=== PATIENT | male | born 1955 | race Caucasian/White ===

== ENCOUNTER → 2019-08-03 09:50 | Outpatient (BNVA) | payer BC, SELFPAY | PROVIDERS: Family Provider Family Medicine; PCP Family Medicine; Visit Provider Family Medicine | DX: E78.00 Pure hypercholesterolemia, unspecified (principal); I10 Essential (primary) hypertension; N40.0 Benign prostatic hyperplasia without lower urinary tract symptoms | CPT/HCPCS: 80053; 80061; 85025; G0103 ==

== ENCOUNTER 2019-12-09 12:54 | Outpatient (CLI) | payer MEDICARE, BC, SELFPAY ==
--- NOTE | 2019-12-09 13:01 | MR_ITS ---
WS: [id number] MRI LUMBAR SPINE NONCONTRAST HISTORY: INTERVERTEBRAL DISC DISORDER WITH RADICULOPATHY COMPARISON: None available. TECHNIQUE: Sagittal and axial multisequence imaging is submitted. Normal lumbar alignment. Very mild disc desiccation throughout the lumbar spine. No marrow edema or f racture. Conus terminates normally at L1. L1-L2: Normal. L2-L3: Very mild annular disc bulging. Slight flattening of the ventral thecal sac. Mild ligamentum f lavum hypertrophy and facet arthropathy. There is mild central and RIGHT foraminal stenosis. Mild enc roachment upon the subarticular recesses by the disc bulging. L3-L4: Mild annular disc bulging with mild facet and ligamentum flavum arthritis. Mild encroachment a nd narrowing of the subarticular recesses. L4-L5: Mild annular disc bulging with moderate facet and ligamentum flavum arthritis. Mild encroachme nt into the subarticular recesses. Mild bilateral foraminal subarticular recess narrowing. L5-S1: Asymmetric disc bulging. Broad-based large RIGHT foraminal disc protrusion with annular fissur es. Disc protrusion is causing near complete effacement of fat in the RIGHT foramen with significant encroachment upon the RIGHT L5 nerve root and to a lesser extent the S1 nerve root. Severe RIGHT fora gonzales stenosis and mild on the LEFT. Paraspinal soft tissues are normal. MR/MR lumbar spine wo con* [id number] IMPRESSION: 1. Large disc protrusion extending into the RIGHT L5-S1 foramen with obliterat ion of the fat and contact on the L5 and S1 nerve roots. 2. Mild bilateral facet joint arthritis and foraminal narrowing from L2-3 thro ugh L4-5. Component of short pedicles may be present as the thecal sac is sligh tly narrowed throughout.
== END 2019-12-09 12:55 | disposition home or self-care (01) ==
LOC: RADWPI 12:59
PROVIDERS: Family Provider Family Medicine; PCP Family Medicine; Visit Provider Family Medicine
DX: M51.16 Intervertebral disc disorders with radiculopathy, lumbar region (principal); M51.27 Other intervertebral disc displacement, lumbosacral region; M13.88 Other specified arthritis, other site
CPT/HCPCS: 72148

== ENCOUNTER → 2020-07-25 12:00 | Outpatient (BNVA) | payer MEDICARE, BC, SELFPAY | PROVIDERS: Family Provider Family Medicine; PCP Family Medicine; Visit Provider Family Medicine | DX: S89.90XA Unspecified injury of unspecified lower leg, initial encounter (principal); E78.00 Pure hypercholesterolemia, unspecified; I10 Essential (primary) hypertension; N40.0 Benign prostatic hyperplasia without lower urinary tract symptoms; S80.912A Unspecified superficial injury of left knee, initial encounter; X58.XXXA Exposure to other specified factors, initial encounter; M17.12 Unilateral primary osteoarthritis, left knee; M51.16 Intervertebral disc disorders with radiculopathy, lumbar region; Z68.35 Body mass index [BMI] 35.0-35.9, adult; F17.211 Nicotine dependence, cigarettes, in remission | CPT/HCPCS: 73562; 80053; 85025; G0103 ==

== ENCOUNTER → 2021-07-26 12:01 | Outpatient (BNVA) | payer MEDICARE, BC, SELFPAY | PROVIDERS: Family Provider Family Medicine; PCP Family Medicine; Visit Provider Family Medicine | DX: Z00.00 Encounter for general adult medical examination without abnormal findings (principal); N40.0 Benign prostatic hyperplasia without lower urinary tract symptoms; E78.00 Pure hypercholesterolemia, unspecified; I10 Essential (primary) hypertension; M17.12 Unilateral primary osteoarthritis, left knee | CPT/HCPCS: 80053; 84153; 85025 ==

== ENCOUNTER → 2021-09-13 13:11 | Outpatient (BNVA) | payer MEDICARE, BC, SELFPAY | PROVIDERS: Family Provider Family Medicine; PCP Family Medicine; Referring Provider Family Medicine; Visit Provider Orthopaedic Surgery | DX: M17.12 Unilateral primary osteoarthritis, left knee (principal); Z87.891 Personal history of nicotine dependence | CPT/HCPCS: 99203 ==

== ENCOUNTER 2021-10-16 17:21 | Observation (INO) | payer MEDICARE, BC, SELFPAY ==
--- NOTE | 2021-10-13 11:35 | ECG_ITS ---
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 Measurements Intervals [place] Rate: 75 P: 11 WI: 163 QRS: 42 QRSD: 93 T: 46 QT: 354 QTc: 398 Interpretive Statements SINUS RHYTHM LOW QRS VOLTAGE IN PRECORDIAL LEADS [QRS DEFLECTION < 1.0 mV IN CHEST LEADS] No previous ECG available for comparison Electronically Signed On 10-13-2021 22:38:15 CDT by Efrem Dean M.D. [id number]
[2021-10-13 11:46] VITALS: BMI 34.0
[2021-10-13 12:40] LABS: Blood Urea Nitrogen 15 mg/dL (8-23); Calcium 9.7 mg/dL (8.5-10.5); Carbon Dioxide 25 mmol/L (22-29); Chloride 100 mmol/L (98-107); Glomerular Filtration Rate 84.4 mL/min (90-130); Glucose 96 mg/dL (65-115); Osmolality Calculated 285 mOsm/kg (285-295); Sodium 137 mmol/L (136-145)
--- NOTE | 2021-10-13 16:12 | ANES.PREANE2 ---
Pre-Anesthetic Assessment Height/Weight: Height 1.88 m Weight 120.202 kg Preop Diagnosis: end stage OA Operation Date: 10/16/21 12:15 Proposed Procedures p total knee arthroplasty of the left knee [id number](Left) - Kevin Carnes MD Familial anesthetic complications: none Was Beta Mila taken within 24 hours: N/A Was Clonidine taken within 24 hours: N/A Social No alcohol and No tobacco Exam alert, oriented x 3, clear to auscultation bilaterally and regular rate & rhythm Airway Submandibular: within normal limits Cervical ROM: within normal limits and Other (Reduced cervical ROM s/p cervical spine surgery ) Mallampati: Class III Dentition: chipped Pulmonary None reported CV/HEM Hypertension None reported BPH Hepatic None reported GI Gastroesophageal Reflux Disease Metabolic None reported Musc/skel Lower Back Pain and Osteoarthritis/DJD Hx of lumbar surgery Neuropsych None reported Anesthetic Plan ASA status: 2 Anesthesia: Anesthesia Evaluation, General and Regional (specify below) (spinal with adductor canal block for post op pain control ) Other: We discussed risk and benefits of general vs spinal anesthesia including DVT risk, infection, paralysis/catastrophic nerve injury, back bruising/pain, PDPH, conversion to general in case of spinal, PONV, sore throat (sometimes severe), corneal abrasion, positioning and peripheral nerve injuries, life threatening allergic reaction, post operative ICU admission requiring prolonged intubation, stroke, heart attack, , post operative delirium and/or post operative cognitive decline, and rare incidences of recall (under general anesthesia). We discussed risk and benefits of nerve block for post op pain control including management of pain and titration of pain medications as signs/symptoms of nerve block wearing off begin to appear and/or prior bed. We discussed risk of failed nerve block, vascular injury or other vital structure injury, abscess/infection, LAST, and nerve injury. Patient consents to spinal with adductor canal block for post op pain control. Risk of > 500 ml blood loss (7ml/kg in children): No Medications/Allergies Home Medications Medication Instructions Recorded Confirmed Last Taken Type tamsulosin 0.4 mg capsule 0.4 mg PO DAILY #90 cap 10/03/20 10/13/21 Unknown Rx lisinopril 20 1 tab PO DAILY #90 tab 04/28/21 10/13/21 Unknown Rx mg-hydrochlorothiazide 25 mg tablet atorvastatin 10 mg tablet 10 mg PO DAILY 90 Days #90 tab 06/19/21 10/13/21 Unknown Rx diclofenac sodium 75 mg 75 mg PO BID 90 Days #180 tab 08/07/21 10/13/21 Unknown Rx tablet,delayed release Osteo Bi-Flex PO DAILY 10/13/21 Unknown History aspirin 81 mg tablet,delayed 81 mg PO DAILY 10/13/21 10/13/21 Unknown History release orohonxfshbe-ggbnkvta-beyhab tablet tab 10/13/21 Unknown History omeprazole 20 mg capsule,delayed 20 mg 10/13/21 Unknown History release Allergies Allergy/AdvReac Type Severity Reaction Status Date / Time No Known Allergies Allergy Verified 09/13/21 13:16 [facility] Anesthesia Medical History Hypercholesteremia Hypertension Prostatic hyperplasia Social History Smoking and tobacco status: former smoker Alcohol intake: former Data Anesthesia : 10/13/21 12:03 BMP 10/13/21 12:03 Sodium 137 Potassium 4.0 Chloride 100 Carbon Dioxide 25 BUN 15 Creatinine 0.9 Glucose 96 Calcium 9.7 Cardiac Studies: No Data to Display
[2021-10-16] VITALS (15 sets, daily range): BP systolic 141–169; BP diastolic 70–109; PULSE 77–99; RESP 16–18; TEMP 36.4–36.7; O2SAT 93–99
[2021-10-16] MEDS: sodium chloride 0.9% 1,000 ML 30 ML IV (10:30)
[2021-10-16] MEDS: CELEcoxib 200 mg Capsule 400 MG PO (10:30)
[2021-10-16] MEDS: oxyCODONE 20 mg ER (12 HR) Tablet PO (10:30)
[2021-10-16] MEDS: acetaminophen 500 mg Tablet 1000 MG PO ×2 (10:31→18:19)
[2021-10-16] MEDS: gabapentin 300 mg Capsule PO ×2 (10:31→18:18)
[2021-10-16 10:44] LABS: Anion Gap 14.5 (5-19); Blood Urea Nitrogen 20 mg/dL (8-23); Calcium 9.3 mg/dL (8.5-10.5); Carbon Dioxide 25 mmol/L (22-29); Chloride 102 mmol/L (98-107); Glomerular Filtration Rate 84.4 mL/min (90-130); Glucose 110 mg/dL (65-115); Osmolality Calculated 287 mOsm/kg (285-295); Potassium 4.5 mmol/L (3.5-5.1); Sodium 137 mmol/L (136-145)
--- NOTE | 2021-10-16 14:05 | ANES.PROC ---
Anesthesia Procedures Procedure/Date: 10/16/21 Nerve Block ^: Nerve Block 1: Main Anesthesia: spinal anesthesia block Time Out Performed: Yes Consent: requested by attending/covering physician, from patient, risks and benefits reviewed and patient agrees to proceed Nerve block location: adductor canal (L) Anesthesia monitors applied: pulse oximetry, EKG, BP cuff and oxygen Nerve block position: supine Anesthetic Used: ropivicaine 0.5% (30) and with decadron (4 mg) Ultrasound used to: recognize landmarks and visualize and ID femerol nerve Nerve Stimulator Used?: Yes Interscalene/Femoral BLK: 4 stimuplex 21 g needle used for position and inplane approach and visualize local anesthetic spread Injection: neg aspiration of heme Patient Tolerated Procedure: well and no complications Complications: none
--- NOTE | 2021-10-16 14:24 | P.HP_ITS ---
Same Day Surgery H&P Indication for Procedure/HPI DATE OF PROCEDURE: October 16, 2021 CHIEF COMPLAINT/INDICATIONFOR SURGICAL PROCEDURE: Osteoarthritis left knee here for left total knee arthroplasty PREOP DIAGNOSIS: OsteoarthritisLeft knee PLANNED PROCEDURE: Operation Date: 10/16/21 12:15 Proposed Procedures p total knee arthroplasty of the left knee [id number](Left) - Kevin Carnes MD The patient is a 65-year-old male with progressive left knee pain. He has severe activity related pain. He has been incompletely controlled with anti- inflammatories. He is here for elective left total knee arthroplasty Medications/Allergies* Home Medications Medication Instructions Recorded Confirmed Type Osteo Bi-Flex PO DAILY 10/13/21 History aspirin 81 mg tablet,delayed 81 mg PO DAILY 10/13/21 10/16/21 History release dydnicllwhme-dcricrjs-laqxus tablet tab 10/13/21 History omeprazole 20 mg capsule,delayed 20 mg 10/13/21 History release Allergies/Adverse Reactions Allergy/AdvReac Type Severity Reaction Status Date / Time No Known Allergies Allergy Verified 09/13/21 13:16 Current Medications: Generic Name Dose Route Start Last Admin Trade Name Freq PRN Reason Stop Dose Admin Sodium Chloride 1,000 mls @ 30 mls/hr 10/16/21 10:00 10/16/21 10:30 Sodium Chloride 0.9% IV 10/17/21 09:59 30 mls/hr .Q24H BERKLEY Administration Pertinent History/Comorbid Conditions* Medical History (Updated 07/25/20 @ 14:28 by Taniya Farias MD) Hypercholesteremia Hypertension Prostatic hyperplasia Social History Smoking and tobacco status: former smoker Alcohol intake: former Pertinent Exam Findings alert, oriented x 3, clear to auscultation bilaterally, regular rate & rhythm and operative site marked Recommendations Surgery/Procedure today Coding Level of Care Code Acute Planning Associate for Elvin Ko
[2021-10-16] MEDS: tranexamic acid 1,000 mg/10mL SDV 1000 MG IV (15:10)
[2021-10-16] MEDS: tranexamic acid 1,000 mg/10mL SDV 1000 MG XX (15:36)
[2021-10-16] MEDS: ketorolac 30 mg/mL INJ XX (15:36)
[2021-10-16] MEDS: EPINEPHrine 1 mg/mL INJ XX (15:36)
--- NOTE | 2021-10-16 16:58 | PM.OP ---
Operative Report Date of procedure: October 16, 2021 Pre-op diagnosis: Preop Diagnosis OsteoarthritisLeft knee Post-op diagnosis: same Post-op diagnosis: Same Post-op findings: Same Procedure done: Left total knee arthroplasty Implants: Rylee total knee arthroplasty components were used includin) Size 6 triathalon cruciate retaining femoral component 2) Size 7 Tritanium tibial component 3) 38 mm /11 mm thickness Tritanium asymetric patella 4) Size 7/11 mm thickness CR tibial bearing insert Pathology: none sent Surgeon: Kevin Carnes Anesthesia: Nerve Block (Spinal, adductor canal block) Estimated blood loss (mL): 200 Findings: The patient eburnated bone over his medial femoral condyle and medial tibial plateau patella and trochlea Disposition: PACU Procedure: The patient was taken to the operating room. Patient was given 1 g of tranexamic acid . The above anesthesia provided by the anesthesia service. A timeout was performed. The patient was prepped and draped in the usual fashion with the lower extremity exposed. A anterior incision was made, midline, from a point proximal to the patella to the distal tibial tubercle. The knee was entered through a medial parapatellar approach. The patella could be displaced laterally and the knee flexed. The patellar fat pad was resected to provide better visibility. Retractors were placed medially and laterally adjacent to the tibial plateau. The femoral canal was drilled in line with the longitudinal axis of the femur. Intramedullary femoral guide for used to make a distal femoral cut in 5 degrees of valgus, resecting 8 mm from the more prominent condyle. Next the extra medullary tibial guide was placed in alignment with the longitudinal axis of the tibia. The cutting guides were set to remove just over 9 mm from the high tibial plateau. The proximal tibia was then cut. The femoral measuring guide was then placed over the distal femur. Rotation was verified checking the relationship of the guide to the condyle and the trochlear groove. The femur was measured and cut for the desired femoral component. The desired tibial baseplate was then chosen. A trial reduction with the femur tibial baseplate and polyethylene was done, assuring that the knee was stable throughout full motion. Ligament balancing involved nothing more than a release of the deep medial collateral ligament and removal of medial ostial.The tibia was prepared for the tibial baseplate. Patellar thickness was then measured. The patella was cut removing articular cartilage and prepared for appropriate size patellar button. surfaces were cleaned with a gentamicin solution. The femur tibia and patella were then press into place. The posterior capsule and collateral ligaments were then injected with a solution of 100 mL of 0.2% ropivacaine, 1 mL of a 1:1000 epinephrine solution, 30 mg of Toradol, and 1 g of tranexamic acid. Final polyethylene component was then snapped into place into the tibia. The extensor retinaculum was closed with a running 1 Stratafix interrupted 1 Ethibond. The subcutaneous tissues were closed with 2-0 Vicryl and the skin was closed with a running 4-0 Stratafix. The wound was covered with a Dermabond Prineo dressing. It was covered with 4xrs and a compressive Tubigauze was applied. The patient was taken to recovery room in stable condition.
--- NOTE | 2021-10-16 17:02 | XRR_ITS ---
PROCEDURE INFORMATION: Exam: XR Left Knee Exam date and time: 10/16/2021 5:15 PM Age: 65 years old Clinical indication: Device placement; Joint replacement hardware; Prior surgery; Surgery date: Post-operative (0-2 days); Surgery type: Left total knee arthroplasty TECHNIQUE: Imaging protocol: XR Left knee. Views: 1 or 2 views. COMPARISON: CR XR knee LT 3V* [id number] 07/25/2020 12:02 PM FINDINGS: Bones/joints: Anatomic alignment of left knee arthroplasty. Soft tissues: Postoperative subcutaneous emphysema and intra-articular air. XR/XR knee LT 1-2V [id number] IMPRESSION: Anatomic alignment of left knee arthroplasty.
[2021-10-16] MEDS: sodium chloride 0.9% 1,000 ML 100 ML IV (18:19)
[2021-10-16] MEDS: oxyCODONE 5 mg IR Tab/Cap PO (21:37)
[2021-10-16] MEDS: CELEcoxib 200 mg Capsule PO (21:37)
[2021-10-17] VITALS (7 sets, daily range): BP systolic 127–174; BP diastolic 75–104; PULSE 86–128; RESP 14–20; TEMP 36.3–36.9; O2SAT 97
[2021-10-17] MEDS: acetaminophen 500 mg Tablet 1000 MG PO ×2 (02:14→09:48)
[2021-10-17] MEDS: oxyCODONE 5 mg IR Tab/Cap PO ×3 (02:19→10:52)
[2021-10-17 04:45] LABS: Hemoglobin 12.1 g/dL (11.7-16.6)
[2021-10-17] MEDS: sodium chloride 0.9% 1,000 ML 100 ML IV (06:06)
[2021-10-17] MEDS: aspirin 81 mg EC Tablet PO (07:18)
[2021-10-17] MEDS: lisinopril 20 mg Tablet PO (07:18)
[2021-10-17] MEDS: hydroCHLOROthiazide 25 mg Tablet PO (07:18)
[2021-10-17] MEDS: gabapentin 300 mg Capsule PO (07:19)
[2021-10-17] MEDS: tamsulosin 0.4 mg Capsule PO (07:20)
--- NOTE | 2021-10-17 07:24 | P.DS_ITS ---
Discharge Providers Date of Admission: 10/16/21 17:21 Date of Discharge: October 17, 2021 Attending Provider at Admission: Kevin Carnes MD Attending Provider at Discharge: Kevin Carnes MD Primary Care Provider: Taniya Farias MD Reason for Visit Reason for Visit: Brief History: The patient left knee pain due to osteoarthritis. He was admitted for elective left total knee arthroplasty Hospital Course Hospital Course The patient tolerated surgery well. They remained hemodynamically stable. They was begun on aspirin and sequential compression dressings for DVT prophylaxis. The patient was mobilized with therapy beginning the day of surgery and by the first postoperative day independent with the walker. As the pain was adequately controlled and they were fully mobile they were discharged home. Physical Exam Narrative: On the day of discharge the knee incision was clean. They had no drainage. There is minimal swelling in the thigh and knee and the calf. No distal neurovascular deficits were noted Urinary Catheter Management: Henriquez: Cath Placed During This Visit: yes Reason for Continuing Indwelling Catheter: Perioperative Use in Selected Surgeries Urinary Catheter Date of Insertion: 10/16/21 Urinary Catheter Time of Insertion: 15:00 Discharge Data Studies Completed and Pending Pending at discharge Category Date Time Status XR knee LT 1-2V [id number] Routine Exams 10/16/21 17:02 Taken Laboratory Results Hgb 12.1 g/dL (11.7-16.6) 10/17/21 04:25 Sodium 137 mmol/L (136-145) 10/16/21 10:18 Potassium 4.5 mmol/L (3.5-5.1) 10/16/21 10:18 Chloride 102 mmol/L (98-107) 10/16/21 10:18 Carbon Dioxide 25 mmol/L (22-29) 10/16/21 10:18 Anion Gap 14.5 (5-19) 10/16/21 10:18 BUN 20 mg/dL (8-23) 10/16/21 10:18 Creatinine 0.9 mg/dL (0.7-1.2) 10/16/21 10:18 GFR Calculation 84.4 mL/min (90-130) L 10/16/21 10:18 Glucose 110 mg/dL (65-115) 10/16/21 10:18 Calculated Osmolality 287 mOsm/kg (285-295) 10/16/21 10:18 Calcium 9.3 mg/dL (8.5-10.5) 10/16/21 10:18 Vitals Last Vital Signs Temp 97.5 F L 10/17/21 04:45 Pulse 87 10/17/21 04:45 Resp 14 10/17/21 04:45 BP 174/102 10/17/21 04:45 Pulse Ox 97 10/17/21 04:45 Discharge Plan Discharge Patient Disposition: Home Condition: Stable Prescriptions: New oxycodone 5 mg Tablet 5 mg PO Q4H PRN (Reason: Moderate Pain) 40 Days 0RF acetaminophen 500 mg Tablet 1,000 mg PO Q8H 14 Days Qty: 84 0RF gabapentin 300 mg Capsule 300 mg PO BID 7 Days Qty: 14 0RF celecoxib 200 mg Capsule 200 mg PO Q12H 14 Days Qty: 28 0RF Continued tamsulosin 0.4 mg capsule 0.4 mg PO DAILY Qty: 90 3RF lisinopril-hydrochlorothiazide 20-25 mg tablet 1 tab PO DAILY Qty: 90 2RF atorvastatin 10 mg tablet 10 mg PO DAILY 90 Days Qty: 90 3RF omeprazole 20 mg Capsule,Delayed Release(Dr/Ec) 20 mg 0RF Rx Instructions: 1/2 oral daily Centrum Silver Tablet 0RF Osteo Bi-Flex PO DAILY 0RF aspirin [Aspir-81] 81 mg Tablet,Delayed Release (Dr/Ec) 81 mg PO DAILY 0RF Discontinued diclofenac sodium 75 mg tablet,delayed release (DR/EC) 75 mg PO BID 90 Days Qty: 180 1RF Discharge Orders: Discharge Order (Routine); Ordered 10/17/21 Ordered By: Kevin Carnes Referrals: Kevin Carnes MD [Physician] - 10/19/21 8:00 am Discharge Diet: Advance as tolerated Discharge Activity: Limit activity as instructed Patient Instructions: Revision Total Joint Arthroplasty (DC), Opioid Safety, Post Operative Pain Activity Restrictions/Additional Instructions: discharge physical exam toOkay to shower Keep Tubigauze sleeve in place for swelling. Okay to remove for hygiene. Apply FirstIce up to 20 min/hr for pain and swelling Take Celebrex twice a day for the next 15 days for pain , discontinue other anti-inflammatories Take Neurontin twice a day for 7 days. Take Tylenol 500mg (2 tabs) as needed 3 times a day for mild pain take oxycodone for breakthrough pain. Exercises per physical therapy. May weight-bear as tolerated on total knee arthroplasty IF HAVE ANY PROBLEMS OR QUESTIONS CALL [facility] AT AND ASK TO HAVE DR. RANDI BABCOCK. Discharge Attestations Time Spent in Discharge Care*: other Quality Metrics Clinical Quality Measures [ No reported AMI, CVA or VTE this stay] Coding Level of Care Code Acute Chg FW DC note
[2021-10-17] MEDS: CELEcoxib 200 mg Capsule PO (09:48)
== END 2021-10-17 12:45 | disposition home health service (06) ==
LOC: OBGYN 17:22
PROVIDERS: Anesthesiology; Admitting Provider Orthopaedic Surgery; PCP Family Medicine; Visit Provider Orthopaedic Surgery
PROC: (CPT 27447; principal; 2021-10-16 11:55)
DX: M17.12 Unilateral primary osteoarthritis, left knee (principal); Z79.82 Long term (current) use of aspirin; I10 Essential (primary) hypertension; E78.00 Pure hypercholesterolemia, unspecified; Z87.891 Personal history of nicotine dependence; N40.0 Benign prostatic hyperplasia without lower urinary tract symptoms; K21.9 Gastro-esophageal reflux disease without esophagitis
CPT/HCPCS: 27447; 36415; 51702; 64447; 73560; 76942; 80048; 85018; 93005; 97110; 97116; 97161; 97165; C1776; G0378; J0171; J1100; J1580; J1885; J2250; J2704; J2795; J3010; J7030

== ENCOUNTER 2021-11-14 06:00 | Outpatient (RCR) | payer MEDICARE, BC, SELFPAY | END 2021-12-10 23:59 | disposition home or self-care (01) | LOC: MPT 06:00 | PROVIDERS: PCP Family Medicine; Referring Provider Orthopaedic Surgery; Visit Provider Orthopaedic Surgery | DX: M17.12 Unilateral primary osteoarthritis, left knee (principal) | CPT/HCPCS: 97110; 97116; 97140; 97161 ==

== ENCOUNTER → 2021-11-15 10:57 | Outpatient (BNVA) | payer MEDICARE, BC, SELFPAY | PROVIDERS: PCP Family Medicine; Visit Provider Orthopaedic Surgery | DX: Z96.652 Presence of left artificial knee joint (principal) | CPT/HCPCS: 73560; 73565; 99024 ==

== ENCOUNTER 2021-12-11 06:00 | Outpatient (RCR) | payer MEDICARE, BC, SELFPAY | END 2022-01-10 23:59 | disposition home or self-care (01) | LOC: MPT 06:00 | PROVIDERS: PCP Family Medicine; Visit Provider Orthopaedic Surgery | DX: Z96.652 Presence of left artificial knee joint (principal) | CPT/HCPCS: 97110; 97112; G0283 ==

== ENCOUNTER → 2021-12-13 10:28 | Outpatient (BNVA) | payer MEDICARE, BC, SELFPAY | PROVIDERS: PCP Family Medicine; Visit Provider Orthopaedic Surgery | DX: Z96.652 Presence of left artificial knee joint (principal) | CPT/HCPCS: 99024 ==

== ENCOUNTER 2022-01-11 06:00 | Outpatient (RCR) | payer MEDICARE, BC, SELFPAY | END 2022-01-17 23:59 | disposition home or self-care (01) | LOC: MPT 06:00 | PROVIDERS: PCP Family Medicine; Visit Provider Orthopaedic Surgery | DX: Z96.652 Presence of left artificial knee joint (principal) | CPT/HCPCS: 97110; 97116; G0283 ==

== ENCOUNTER → 2022-07-17 11:03 | Outpatient (BNVA) | payer MEDICARE, BC, SELFPAY | PROVIDERS: PCP Family Medicine; Visit Provider Family Medicine | DX: Z00.00 Encounter for general adult medical examination without abnormal findings (principal); N40.1 Benign prostatic hyperplasia with lower urinary tract symptoms; N39.43 Post-void dribbling; I10 Essential (primary) hypertension; E78.00 Pure hypercholesterolemia, unspecified; R97.20 Elevated prostate specific antigen [PSA]; K52.9 Noninfective gastroenteritis and colitis, unspecified | CPT/HCPCS: 80053; 80061; 85025; G0103 ==

== ENCOUNTER → 2023-10-02 12:16 | Outpatient (BNVA) | payer MEDICARE, BC, SELFPAY | PROVIDERS: PCP Family Medicine; Visit Provider Family Medicine | DX: R68.89 Other general symptoms and signs (principal); I10 Essential (primary) hypertension; E78.00 Pure hypercholesterolemia, unspecified; N40.0 Benign prostatic hyperplasia without lower urinary tract symptoms; N40.1 Benign prostatic hyperplasia with lower urinary tract symptoms; N39.43 Post-void dribbling; Z00.00 Encounter for general adult medical examination without abnormal findings; R97.20 Elevated prostate specific antigen [PSA] | CPT/HCPCS: 80053; 80061; 84153; 85025 ==

== ENCOUNTER 2023-10-31 10:30 | Outpatient (CLI) | payer MEDICARE, BC, SELFPAY ==
--- NOTE | 2023-10-31 10:30 | CTR_ITS ---
PROCEDURE INFORMATION: Exam: CT Cervical Spine Without Contrast Exam date and time: 10/31/2023 10:17 AM Age: 67 years old Clinical indication: Neck pain; Prior surgery; Surgery date: 6+ months; Patient HX: Left arm/hand tingling and numbness x 3 years; Additional info: Progressive tingling and weakness both hands recent weeks TECHNIQUE: Imaging protocol: Computed tomography of the cervical spine without contrast. Radiation optimization: All CT scans at this facility use at least one of these dose optimization techniques: automated exposure control; mA and/or kV adjustment per patient size (includes targeted exams where dose is matched to clinical indication); or iterative reconstruction. COMPARISON: CT cervical spin wo con* [id number] 08/21/2018 12:59 PM RADIATION DOSE METRICS: Total DLP (mGy-cm): 372.87 FINDINGS: Bones: Intact ACDF hardware at the C5-C7 segment with intervertebral disc spacers. No acute fracture. Normal alignment. Moderate to severe central canal stenosis posterior to C3-C4. Moderate bilateral neural foraminal stenosis of the mid and lower cervical spine. Lungs: Lung apices are normal. Soft tissues: Unremarkable. CT/CT cervical spin wo con* [id number] IMPRESSION: Moderate to severe central canal stenosis posterior to C3-C4. Moderate bilateral neural foraminal stenosis of the mid and lower cervical spine.
== END 2023-10-31 10:31 | disposition home or self-care (01) ==
PROVIDERS: PCP Family Medicine; Visit Provider Family Medicine
DX: M48.02 Spinal stenosis, cervical region (principal); M50.123 Cervical disc disorder at C6-C7 level with radiculopathy; Z98.1 Arthrodesis status
CPT/HCPCS: 72125

== ENCOUNTER → 2023-11-18 15:50 | Outpatient (BNVA) | payer MEDICARE, BC, SELFPAY | PROVIDERS: PCP Family Medicine; Visit Provider Family Medicine | DX: M48.02 Spinal stenosis, cervical region (principal); M50.123 Cervical disc disorder at C6-C7 level with radiculopathy; Z98.1 Arthrodesis status; I10 Essential (primary) hypertension; Z79.899 Other long term (current) drug therapy | CPT/HCPCS: 80053; 85025 ==

== ENCOUNTER → 2023-11-21 14:14 | Outpatient (BNVA) | payer MEDICARE, BC, SELFPAY | PROVIDERS: PCP Family Medicine; Visit Provider Orthopaedic Surgery | DX: M50.123 Cervical disc disorder at C6-C7 level with radiculopathy (principal); M48.02 Spinal stenosis, cervical region | CPT/HCPCS: 72050; 99204 ==

== ENCOUNTER → 2023-12-17 10:38 | Outpatient (BNVA) | payer MEDICARE, BC, SELFPAY | PROVIDERS: PCP Family Medicine; Visit Provider Family Medicine | DX: M62.81 Muscle weakness (generalized) (principal); W57.XXXA Bitten or stung by nonvenomous insect and other nonvenomous arthropods, initial encounter; M48.02 Spinal stenosis, cervical region; Z98.1 Arthrodesis status | CPT/HCPCS: 80053; 82550; 85651; 86140; 86618; 86666; 86757 ==

== ENCOUNTER 2023-12-30 15:54 | Outpatient (CLI) | payer MEDICARE, BC, SELFPAY ==
--- NOTE | 2023-12-30 16:00 | MR_ITS ---
WS: [id number] MRI CERVICAL SPINE NONCONTRAST TECHNIQUE: Sagittal T1, T2 and STIR imaging. Axial T2, gradient, and fiesta imaging. CLINICAL INFORMATION: neck pain COMPARISON: CT 10/31/2023 and MRI 2017 FINDINGS: Straightening of the normal cervical lordosis. Prior postoperative changes ACDF C5-C7. Postoperative changes are new since the prior MRI. C2-C3: Mild disc bulging. Mild facet arthropathy. C3-C4: Central disc osteophyte protrusion with indentation and flattening of the cervical cord. Sever e central canal stenosis. Central canal measures 4.8 mm at this level. Trace myelomalacia in the cerv ical cord at this level. Recommend spine surgery consultation. Severe LEFT and moderate RIGHT bony fo raminal narrowing. Moderate facet arthropathy. C4-C5: Shallow central protrusion. Tiny annular fissure. Slight indentation on the cervical cord. Mil d central canal stenosis. Moderate facet arthropathy. Moderate LEFT greater than RIGHT bony foraminal narrowing. C5-C6: Postoperative changes ACDF. Spinal canal is patent. Mild bilateral bony foraminal narrowing. M ild facet arthropathy. C6-C7: Postoperative changes. Moderate LEFT and no significant RIGHT foraminal narrowing. Spinal kameron l is patent. C7-T1: Mild disc bulging with slight effacement of the ventral thecal sac. Moderate LEFT and no signi ficant RIGHT foraminal narrowing. Spinal canal is patent. Mild facet arthropathy. Visualized brain stem structures: Normal. Prevertebral soft tissues: Normal. MR/MR cervical spin wo con* [id number] IMPRESSION: 1. Severe central canal stenosis C3-C4 with central disc osteophyte protrusion . Indentation and flattening of the cervical cord with a small amount of myelom alacia. Central canal measures 4.8 mm at this level. Recommend spine surgery co nsultation. 2. Mild central canal stenosis C4-5 with slight indentation of the cervical co rd. 3. Postoperative changes ACDF C5-C7. 4. Moderate to severe bony foraminal narrowing worse LEFT C3-C4, LEFT C4-5, LE FT C6-7 and LEFT C7-T1.
== END 2023-12-30 15:55 | disposition home or self-care (01) ==
LOC: RAD 15:55
PROVIDERS: PCP Family Medicine; Visit Provider Orthopaedic Surgery
DX: M48.02 Spinal stenosis, cervical region (principal); Z98.1 Arthrodesis status
CPT/HCPCS: 72141

== ENCOUNTER → 2024-01-02 12:44 | Outpatient (BNVA) | payer MEDICARE, BC, SELFPAY | PROVIDERS: PCP Family Medicine; Visit Provider Orthopaedic Surgery | DX: Z01.818 Encounter for other preprocedural examination (principal); M54.2 Cervicalgia; M47.12 Other spondylosis with myelopathy, cervical region | CPT/HCPCS: 36415; 80053; 81003; 81015; 85025; 99214 ==

== ENCOUNTER → 2024-01-15 09:10 | Outpatient (BNVA) | payer MEDICARE, BC, SELFPAY | PROVIDERS: PCP Family Medicine; Visit Provider Family Medicine | DX: Z01.818 Encounter for other preprocedural examination (principal); I49.8 Other specified cardiac arrhythmias; I49.49 Other premature depolarization | CPT/HCPCS: 93005 ==

== ENCOUNTER 2024-01-22 09:30 | Observation (INO) | payer MEDICARE, BC, SELFPAY ==
[2024-01-22] VITALS (23 sets, daily range): BP systolic 117–185; BP diastolic 68–107; PULSE 8–116; RESP 16–20; TEMP 36.1–37.1; O2SAT 91–97; BMI 30.8
--- NOTE | 2024-01-22 06:15 | W.PM.OPSUD ---
Surgery/Procedure H&P Update DATE OF PROCEDURE: January 22, 2024 DATE H&P PERFORMED: 01/15/24 H&P UPDATE INFORMATION: I have reviewed H&P completed within last 30 days, I have examined patient prior to procedure and No changes to prior documentation PREOP DIAGNOSIS: Cervical radiculopathy PLANNED PROCEDURE: Operation Date: 01/22/24 07:00 Proposed Procedures p Anterior Cervical Discectomy & Fusion ACDF w/ Anterior Interbody Fusion w/ Cage w/ Instrumentation w/ Allograft w/ Navigation(Not Applicable) - Cecil Torres DO
[2024-01-22] MEDS: sodium chloride 0.9% 1,000 ML 30 ML IV (06:23)
--- NOTE | 2024-01-22 06:41 | ANES.PREANE2 ---
Pre-Anesthetic Assessment Height/Weight: Height 1.88 m Weight 108.862 kg Temp Pulse Resp BP Pulse Ox O2 Del Method 97.7 F 98 16 149/103 97 Room Air 01/22/24 06:10 01/22/24 06:10 01/22/24 06:10 01/22/24 06:10 01/22/24 06:10 01/22/24 06:10 Preop Diagnosis: Cervical radiculopathy Operation Date: 01/22/24 07:00 Proposed Procedures p Anterior Cervical Discectomy & Fusion ACDF w/ Anterior Interbody Fusion w/ Cage w/ Instrumentation w/ Allograft w/ Navigation(Not Applicable) - Cecil Torres, DO Familial anesthetic complications: None Was Beta Mila taken within 24 hours: N/A Was Clonidine taken within 24 hours: N/A Last intake: Intake Last Liquid Date 01/21/24 Last Liquid Time 21:00 Last Solid Date 01/21/24 Last Solid Time 17:00 Social No alcohol and No tobacco Exam alert, oriented x 3, clear to auscultation bilaterally and regular rate & rhythm Airway Mallampati: Class IV Dentition: false and other (missing) Comments: Comments: cervical fusion CV/HEM Hypertension GI Gastroesophageal Reflux Disease Metabolic Hyperlipidemia Anesthetic Plan ASA status: 2 Anesthesia: General Risk of > 500 ml blood loss (7ml/kg in children): No Medications/Allergies Home Medications Medication Instructions Recorded Confirmed Last Taken Type Osteo Bi-Flex 1 cap PO DAILY 10/13/21 01/22/24 10/16/21 History aspirin 81 mg tablet,delayed 81 mg PO DAILY 10/13/21 01/22/24 01/14/24 History release kxpfjfcrnnma-mdfunifj-uksryt tablet 1 tab PO DAILY 10/13/21 01/22/24 10/16/21 History omeprazole 20 mg capsule,delayed 20 mg PO DAILY 10/13/21 01/22/24 01/21/24 History release diclofenac sodium 75 mg See Rx Instructions .Route 05/24/23 01/22/24 01/14/24 Rx tablet,delayed release .COMPLEX #180 tabs Bone Growth Stimulator #1 ea 01/15/24 01/22/24 Unknown Rx atorvastatin 10 mg tablet 10 mg PO DAILY 01/21/24 01/22/24 01/21/24 History tamsulosin 0.4 mg capsule 0.4 mg PO DAILY 01/21/24 01/22/24 01/21/24 History Allergies Allergy/AdvReac Type Severity Reaction Status Date / Time No Known Allergies Allergy Verified 01/21/24 11:47 Current Medications Generic Name Dose Route Start Last Admin Trade Name Freq PRN Reason Stop Dose Admin Sodium Chloride 1,000 mls @ 30 mls/hr 01/22/24 06:00 01/22/24 06:23 Sodium Chloride 0.9% IV 01/23/24 05:59 30 mls/hr .Q24H BERKLEY Administration PFSH Anesthesia Medical History Spinal stenosis, cervical region Prostatic hyperplasia Hypertension Hypercholesteremia Social History Smoking and tobacco/nicotine status: never used tobacco/nicotine Alcohol intake: former Substance/Drug Use: never Data Anesthesia Cardiac Studies: No Data to Display
[2024-01-22] MEDS: ceFAZolin 2,000 mg SDV 2000 MG IVP ×3 (07:00→22:53)
[2024-01-22] MEDS: lidocaine-epi 1% 20 mL INJ INJECTION (07:52)
--- NOTE | 2024-01-22 09:39 | PM.OP ---
Operative Report Date of procedure: January 22, 2024 Pre-op diagnosis: Cervical radiculopathy and myelopathy Post-op diagnosis: same Procedure done: 1. Anterior diskectomy C3/4 2. Anterior discectomy C4/5 3. Insertion of cage C3/4 4. Insertion of Cage C4/5 5. Instrumentation with anterior plate from C3-C5 6. Use of allograft Surgeon: Cecil Torres DO Estimated blood loss (mL): 50 Procedure: 1. Anterior diskectomy C3/4 2. Anterior discectomy C4/5 3. Insertion of cage C3/4 4. Insertion of Cage C4/5 5. Instrumentation with anterior plate from C3-C5 6. Use of allograft The patient was taken to the operating room, where he underwent general endotracheal anesthesia without complications. He was then positioned supine on the operating table, and all areas of impingement were well padded. The arms were carefully padded and tucked at his sides. A roll was placed between the shoulder blades.. An x-ray was done to determine the appropriate level for the skin incision. The entire neck was then sterilely prepped and draped in the usual fashion. Neuromonitoring was attached prior to prepping. A transverse skin incision was made and carried down to the platysma muscle. This was then split in line with its fibers. Blunt dissection was carried down medial to the carotid sheath and lateral to the trachea and esophagus until the anterior cervical spine was visualized. A needle was placed into a disc and an x-ray was done to determine its location. The longus colli muscles were then elevated bilaterally with the electrocautery unit. Self-retaining retractors were placed deep to the longus colli muscle. Attention was brought to the C3/4 level that was confirmed on x-ray. A caspar pin was placed into the C3 vertebrae and the C4 vertebrae. The disk space was then distracted. The microscope was then brought in. A radical anterior discectomies were performed at C3/4. This included complete removal of the anterior annulus, nucleus, and posterior annulus. The posterior longitudinal ligament was removed as were the posterior osteophytes. Foraminotomies were then accomplished bilaterally. This was done using a high speed malena, kerrison rongeurs and curretes Once all of this was accomplished, the curved currette was used to check for any residual compression. The central canal was wide open as were the foramen. A high-speed bur was used to remove the cartilaginous endplates above and below the interspace. Bleeding cancellous bone was exposed. The disc space were measured and appropriate size cage were placed sterilely onto the field. Allograft graft was packed into the cages. The cage was then placed and there was good juxtaposition against the bleeding decorticated surfaces and good distraction of each interspace. Attention was brought to the next interspace. The [place] pins were removed. Bone wax was used to prevent any bleeding from occurring at the pin sites. Attention was brought to the C4/5 level that was confirmed on x-ray. The microscope was then brought in. A radical anterior discectomies were performed at C4/5. This included complete removal of the anterior annulus, nucleus, and posterior annulus. The posterior longitudinal ligament was removed as were the posterior osteophytes. Foraminotomies were then accomplished bilaterally. This was done using a high speed malena, kerrison rongeurs and curretes Once all of this was accomplished, the curved currette was used to check for any residual compression. The central canal was wide open as were the foramen. A high-speed bur was used to remove the cartilaginous endplates above and below the interspace. Bleeding cancellous bone was exposed. The disc space were measured and appropriate size cage were placed sterilely onto the field. Allograft graft was packed into the cages. The cage was then placed and there was good juxtaposition against the bleeding decorticated surfaces and good distraction of each interspace. Screws were then placed into each of the vertebral bodies through the cage at C3, C4, and C5. There was excellent purchase. A final x-ray was done confirming good position of the hardware and Cages. The locking screws were then applied, also with excellent purchase. Following a final copious irrigation, there was good hemostasis and no dural leaks. The carotid pulse was strong. The wounds were then closed in layers using 2-0 Vicryl suture for the platysma muscle, 2-0 Vicryl suture for the subcutaneous tissue, and 4-0 monocryl suture in a subcuticular skin closure. Glue was placed followed by application of a sterile dressing. The drain was hooked to bulb suction. A soft collar was applied. The patient was then carefully returned to the supine position on his hospital bed where he was reversed and extubated and taken to the recovery room having tolerated the procedure well.
--- NOTE | 2024-01-22 10:30 | ANE.PACU2 ---
Inpatient post-anesthesia follow up: Airway intact: Yes Vital signs: Temperature 97.5 F Pulse Rate 98 Respiratory Rate 17 Blood Pressure 162/107 Pulse Oximetry 94 Oxygen Delivery Me thod Room Air Oxygen Flow Rate 6 Fraction of Inspir ed Oxygen Hydration adequate: Yes Nausea and vomiting: No Pain level: 1 Mental status: Baseline
[2024-01-22] MEDS: ketorolac 30 mg/mL INJ IVP ×2 (11:12→17:12)
[2024-01-22] MEDS: HYDROcodone-acetaminophen 5-325 mg Tablet PO ×2 (11:13→17:10)
[2024-01-22] MEDS: lactated ringers 1,000 ML 90 ML IV ×2 (11:13→21:22)
--- NOTE | 2024-01-22 13:41 | XR_ITS ---
WS: [email or web address] XR cervical spine 3V* [id number] REASON FOR EXAM: or pic, acdf FINDINGS: Anterior oblique screw placement with interbody fusion device C3-C4 C4-C5. Surgical appliances are intact and in proper position and alignment. XR/XR cervical spine 3V* [id number] IMPRESSION: Anterior cervical fusion without abnormality.
[2024-01-22] MEDS: docusate sodium 100 mg Capsule PO (17:10)
[2024-01-23] VITALS: BP 174/82
[2024-01-23] MEDS: ketorolac 30 mg/mL INJ IVP (00:09)
[2024-01-23 00:52] VITALS: BP 149/81
[2024-01-23 04:25] VITALS: BP 192/86; PULSE 97; RESP 17; TEMP 36.4; O2SAT 95
[2024-01-23] MEDS: HYDROcodone-acetaminophen 5-325 mg Tablet PO ×2 (04:34→08:45)
[2024-01-23 05:14] VITALS: BP 182/96
[2024-01-23] MEDS: ceFAZolin 2,000 mg SDV 2000 MG IVP (06:31)
[2024-01-23 07:35] VITALS: BP 169/91; PULSE 92; RESP 16; TEMP 36.7; O2SAT 97
[2024-01-23] MEDS: lactated ringers 1,000 ML 90 ML IV (08:43)
[2024-01-23] MEDS: pantoprazole DR 40 mg Tablet PO (08:45)
[2024-01-23] MEDS: docusate sodium 100 mg Capsule PO (08:45)
[2024-01-23] MEDS: tamsulosin 0.4 mg Capsule PO (08:46)
[2024-01-23] MEDS: atorvastatin 40 mg Tablet 20 MG PO (08:46)
--- NOTE | 2024-01-23 10:12 | P.DS_ITS ---
Discharge Providers Date of Admission: 01/23/24 01:35 Date of Discharge: January 23, 2024 Attending Provider at Admission: Cecil Torres DO Attending Provider at Discharge: Cecil Torres DO Primary Care Provider: Taniya Farias MD Reason for Visit Reason for Visit: M48.02 Physical Exam Narrative: Patient stated he has seen improvement of his neurologic function. At this point has no swallowing issues either. Discharge Data Studies Completed and Pending Completed Studies During Hospitalization Category Date Time Status XR cervical spine 3V* [id number] Routine Exams 01/22/24 13:41 Completed Radiology Impressions Cervical Spine X-Ray 01/22/24 13:41 IMPRESSION: Anterior cervical fusion without abnormality. Laboratory Results Blood Type AB Positive 01/22/24 06:23 Rho(D) Type Rh positive 01/22/24 06:23 Antibody Screen Negative 01/22/24 06:23 Vitals Last Vital Signs Temp 98.1 F 01/23/24 07:35 Pulse 92 01/23/24 07:35 Resp 16 01/23/24 07:35 BP 169/91 01/23/24 07:35 Pulse Ox 97 01/23/24 07:35 O2 Del Method Room Air 01/23/24 07:35 O2 Flow Rate 6 01/22/24 09:34 Discharge Plan Discharge Patient Disposition: Home Condition: Stable Prescriptions: Continued atorvastatin 10 mg tablet 10 mg PO DAILY Rx Instructions: TAKE 1 TABLET BY MOUTH DAILY tamsulosin 0.4 mg capsule 0.4 mg PO DAILY Rx Instructions: TAKE 1 CAPSULE BY MOUTH DAILY omeprazole 20 mg Capsule,Delayed Release(Dr/Ec) 20 mg PO DAILY Rx Instructions: 1/2 oral daily sypfararwevm-ejknmknk-ezpynr Tablet 1 tab PO DAILY Osteo Bi-Flex 1 cap PO DAILY Held diclofenac sodium 75 mg tablet,delayed release (DR/EC) See Rx Instructions .ROUTE .COMPLEX Qty: 180 3RF Hold Instructions: Resume on 01/24/24. Dose Instruction: TAKE 1 TABLET BY MOUTH TWICE DAILY NEEDED FOR PAIN FOR 90 DAYS Rx Instructions: TAKE 1 TABLET BY MOUTH TWICE DAILY NEEDED FOR PAIN FOR 90 DAYS aspirin 81 mg Tablet,Delayed Release (Dr/Ec) 81 mg PO DAILY Hold Instructions: Resume on 01/24/24. No Action (DME) Bone Growth Stimulator See Rx Instructions .Route .MEDSUPPLY Qty: 1 0RF Rx Instructions: As directed Discharge Orders: Discharge Order (Routine); Ordered 01/23/24 Ordered By: Cecil Torres Referrals: Cecil Torres, [Physician] - 02/04/24 1:45 pm Discharge Diet: Advance as tolerated Discharge Activity: Limit activity as instructed Patient Instructions: Acute Wound Care (DC), Opioid Safety, Post Anesthesia Care Activity Restrictions/Additional Instructions: Thank you for choosing [facility] for your care! The following is a list of instructions, from your provider, to follow upon your discharge to ensure you have the optimal recovery from your recent injury or surgery. Anterior Cervical Discectomy and Fusion: What to Expect at Home Your Recovery Follow-up care is a almodovar part of your treatment and safety. Be sure to make and go to all appointments, and call your doctor if you are having problems. If you do not already have a follow-up appointment made, call office in the next 1-3 days to make follow up appointment for 2 weeks at [phone]. It is also a good idea to know your test results and keep a list of the medicines you take. You can expect your neck to feel stiff or sore after surgery. This should improve in the weeks after surgery. But it may take 4 to 6 months for you to get better completely. You may have trouble sitting or standing in one position for very long and may need pain medicine in the weeks after your surgery. It may take 4 to 6 weeks to get back to your usual activities, but it may depend on what kind of surgery you had. Your throat will feel sore and it may be difficult to swallow for the first 3 days after your surgery. As long as you can get liquids down without difficulty, this should slowly improve, otherwise call our office or seek medical attention if it becomes increasingly difficult to get anything down including liquids. Avoid hot liquids for first 3-5 days. Soothing foods/liquids such as jello, pudding, and luke warm soups are recommended until swallowing improves. Staying elevated will also help, it's advised you keep propped up at while sleeping to help reduce the swelling. You may use an ice pack directly on your incision or around it on the front of your neck, using a cloth to protect your skin; and a heating pad to the back of your neck as needed. Do not use over the counter anti-inflammatory medications (Ibuprofen, Motrin, Aleve, Advil, etc) Taking these meds after having a fusion can delay fusion rates, we recommend you avoid them for the first 3 [address] your surgery[address] Dr. Torres may advise you to work with a physical therapist to strengthen the muscles around your neck and back - this will be discussed at your follow - up appointments. The pain or numbness you were having in your arms before surgery should get better or go away completely. This care sheet gives you a general idea about how long it will take for you to recover. But each person recovers at a different pace. Follow the steps below to get better as quickly as possible. How can you care for yourself at home? Activity ? Rest when you feel tired. Getting enough sleep will help you recover. ? Try to walk each day. Start by walking a little more than you did the day before. Bit by bit, increase the amount you walk. Walking boosts blood flow and helps prevent pneumonia and constipation. Walking may also decrease your muscle soreness after surgery. ? No lifting anything that is more that 5 pounds. This may include heavy grocery bags and milk containers, a heavy briefcase or backpack, cat litter or dog food bags, a child, or a vacuum bottle packing machine cleaner. ? Avoid strenuous activities, such as bicycle riding, jogging, weightlifting, or aerobic exercise, until your doctor says it is okay. ? Do not drive until your follow-up visit after your surgery, or until your doctor says it isokay. ? Avoid taking long car trips for 2 to 4 weeks after surgery. Your neck may become tired and painful from sitting too long in one position. ? You will probably need to take 4 to 6 weeks off from work. It depends on the type of work you do and how you feel. ? You may have sex as soon as you feel able, but avoid positions that put stress on your neck or cause pain. Diet ? You can eat your normal diet. If your stomach is upset, try bland, low-fat foods like plain rice, broiled chicken, toast, and yogurt ? Drink plenty of fluids. If you have kidney, heart, or liver disease and have to limit fluids, talk with your doctor before you increase the amount of fluids you drink. ? You may notice that your bowel movements are not regular right after your surgery. This is common. Try to avoid constipation and straining with bowel movements. You may want to take a fiber supplement every day. If you have not had a bowel movement after a couple of days, ask your doctor about taking a mild laxative. Medicines ? Take pain medicines exactly as directed. 1. If Dr. Torres gave you a prescription medicine for pain, take lt as prescribed. 2. Do not take two or more pain medicines at the same time unless the doctor told you to. Many pain medicines have acetaminophen, which is Tylenol. Too much acetaminophen {Tylenol) can be harmful. 3. If you think your pain pill is making you sick to your stomach: 4. Take your pills after meals (unless your doctor has told you not to). 5. Ask your Dr. for a different pain pill. Incisioncare ? Remove your dressing 48hours after your surgery. Ok to shower and get the incision wet. Do not overtly wash your incision. When done, pad dry, leave open to air thereafter. Avoid creams and ointments directly on your incision. ? Your sutures in the incision will dissolve and fall out on their own. ? Keep the area clean and dry. You may cover it with a gauze bandage if it weeps or rubs against clothing; if you choose to do this, change the dressing everyday. Other instructions ? Use a heating pad, hot water bottle, or gentle massage on your back to reduce stiffness. Avoid putting heat on your incision When should you call for help? ? Call 911 anytime you think you may need emergency care. For example, call if: ? You pass out (lose consciousness). ? You have sudden chest pain and shortness of breath, or you cough upblood. ? You cannot swallow. ? You have severe pain in your neck or back. ? Call your Dr. or seek immediate medical care if: ? You have pain that does not get better after you take pain pills. ? You have loose stitches, or your incision comes open. ? You have blood or fluid draining from the incision. ? You have signs of infection, such as: 1. Increased pain, swelling, warmth, or redness. 2. Red streaks leading from the site. 3. Pus draining from the site. 4. Swollen lymph nodes in your neck or armpits. 5. A fever. ? You have severe pain in your arms. ? You have new or increased weakness or numbness in your arms. ? Watch closely for any changes in your health, and be sure to contact your doctor if: ? You do not have a bowel movement after taking a laxative. Discharge Attestations Time Spent in Discharge Care*: less than 30 min Quality Metrics Clinical Quality Measures [ No reported AMI, CVA or VTE this stay] Coding Level of Care Code Acute Code for Chg Fwd
== END 2024-01-23 12:22 | disposition home or self-care (01) ==
LOC: MEDSURG 09:30
PROVIDERS: Admitting Provider Orthopaedic Surgery; PCP Family Medicine; Visit Provider Orthopaedic Surgery
PROC: 0RB30ZZ Excision of Cervical Vertebral Disc, Open Approach (ICD-10-PCS; CPT 22551; principal; 2024-01-22 07:00)
DX: M54.12 Radiculopathy, cervical region (principal); M48.02 Spinal stenosis, cervical region; I10 Essential (primary) hypertension; K21.9 Gastro-esophageal reflux disease without esophagitis; E78.5 Hyperlipidemia, unspecified; Z79.82 Long term (current) use of aspirin
CPT/HCPCS: 20930; 22551; 22552; 22845; 22853 ×2; 36415; 72040; 76000; 86850; 86900; 97110; 97161; C9359; G0378; J0131; J0690; J1170; J1885; J2371; J2704; J2710; J3010; J3490; J7030; J7120

== ENCOUNTER 2024-01-24 16:59 | Emergency (ER) | payer MEDICARE, BC, SELFPAY ==
[2024-01-24 17:28] VITALS: BP 174/81; PULSE 98; RESP 18; TEMP 36.4; O2SAT 98
[2024-01-24] MEDS: HYDROcodone-acetaminophen 7.5-325 mg Tablet 1 TAB PO (18:18)
[2024-01-24 18:26] VITALS: BP 171/84; PULSE 91; RESP 16; O2SAT 99
--- NOTE | 2024-01-25 00:28 | W.ED.NECK ---
HPI - Neck Pain/Injury General: Chief Complaint: Neck Pain/Injury Stated Complaint: Post op Pain Time Seen by Provider: 01/24/24 17:42 Source: patient Mode of arrival: ambulatory Limitations: no limitations History of Present Illness: Patient is a 68-year-old male who is 2 days postop anterior cervical discectomy and fusion who is complaining of neck pain since. States he was post be discharged home with pain medications but this has not been fulfilled. He is noting some numbness down both arms, however states this has been present since after the surgery and does not seem to be worsening. States he simply just wants something for pain and does have a follow-up appointment next week. He does state that he did have a minor fall today, however just states that he tried to get out of his chair too quickly and fell on his butt, did not worsen his neck pain any. No new neurological deficits reported at this time. MD complaint: neck pain Onset (ago): day(s) Context: other (ACDF x2 days ) Associated symptoms: Denies headache(s) or nausea Treatments prior to arrival: none Related Data Home Medications Medication Instructions Recorded Confirmed Osteo Bi-Flex 1 cap PO DAILY 10/13/21 01/22/24 aspirin 81 mg tablet,delayed 81 mg PO DAILY 10/13/21 01/22/24 release oqvxjumzfjsu-ikqodsdu-lqqxto tablet 1 tab PO DAILY 10/13/21 01/22/24 omeprazole 20 mg capsule,delayed 20 mg PO DAILY 10/13/21 01/22/24 release atorvastatin 10 mg tablet 10 mg PO DAILY 01/21/24 01/22/24 tamsulosin 0.4 mg capsule 0.4 mg PO DAILY 01/21/24 01/22/24 Previous Rx's Medication Instructions Recorded diclofenac sodium 75 mg See Rx Instructions .Route 05/24/23 tablet,delayed release .COMPLEX #180 tabs Bone Growth Stimulator #1 ea 01/15/24 hydrocodone 7.5 mg-acetaminophen 1 tab PO Q8H pain #15 tabs 01/24/24 325 mg tablet Allergies Allergy/AdvReac Type Severity Reaction Status Date / Time No Known Allergies Allergy Verified 01/24/24 17:32 Review of Systems General: Reports: 10 or more systems reviewed and unremarkable except in HPI and below Const: Denies: fever(s), chills or fatigue Eyes: Denies: change in vision ENMT: Denies: throat pain, ear or mastoid pain or nasal discharge Card: Denies: chest pain, palpitations, swelling of feet/ankles or lightheadedness Resp: Denies: dyspnea, productive cough or wheezing GI: Denies: abdominal pain, nausea, vomiting, diarrhea or constipation : Denies: flank pain, difficulty urinating, dysuria or urinary frequency Musc: Reports: neck pain; Denies: back pain or joint pain Skin/Breast: Denies: rash Neuro: Reports: numbness in extremities; Denies: headache(s) or weakness in extremities PFSH ED PFSH: Medical History Spinal stenosis, cervical region Prostatic hyperplasia Hypertension Hypercholesteremia Social History Smoking and tobacco/nicotine status: never used tobacco/nicotine Alcohol intake: former Substance/Drug Use: never Physical Exam Const: COMMON NORMALS: no acute distress, patient oriented x3, no limitations, healthy appearing, alert and well nourished OTHER: C-collar present HENMT: COMMON NORMALS: normocephalic and atraumatic HEAD & SCALP: normocephalic and atraumatic Neck/C-Spine: COMMON NORMALS: no meningeal signs OTHER: C-collar, surgical incision evaluated through the c-collar with no active bleeding or seeping through the bandages, does appear to be healing well. Resp: COMMON NORMALS: normal respiratory effort, No use of accessory muscles and clear to auscultation bilaterally AUSCULTATION: clear to auscultation bilaterally Cardio: COMMON NORMALS: regular rate and regular rhythm RATE: regular rate RHYTHM: regular rhythm Extremity: COMMON NORMALS: normal to inspection, full ROM, capillary refill normal, no joint enlargement and no clubbing, cyanosis or edema Neuro: COMMON NORMALS: patient oriented x3, moves all extremities, no focal motor deficits and no sensory deficits noted SENSORIUM/ORIENTATION: Yes alert MENINGEAL SIGNS: Yes no meningeal signs Skin: COMMON NORMALS: no rashes or lesions noted GENERAL SKIN EXAM: no rashes or lesions noted Course Vital Signs: Vital signs: Vital Signs Temperature 97.5 F L 01/24/24 17:28 Pulse Rate 91 01/24/24 18:26 Respiratory Rate 16 09/13/24 18:26 Blood Pressure 171/84 01/24/24 18:26 Pulse Oximetry 99 01/24/24 18:26 MDM - Neck Pain/Injury Medical Decision Making Patient presented stating that he wanted pain medications being postop ACDF 2 days ago, has not been able to get them filled. I did give him 1 [place] here as well as 1 to go home with. Did discuss with Dr. Torres, patient surgeon, who agrees that nothing else needs to be done other than prescribing pain medications until he can follow-up with him next week in the office. Discussed this with patient who pleasantly agrees at this time and will be discharged home with proper return precautions given. He is to remain in c-collar until his follow-up No radiology studies performed this visit Discharge Plan Discharge Patient Disposition: Home Clinical Impression: Post-operative pain Condition: Stable Prescriptions: New hydrocodone-acetaminophen 7.5-325 mg tablet 1 tab PO Q8H Qty: 15 0RF No Action diclofenac sodium 75 mg tablet,delayed release (DR/EC) See Rx Instructions .ROUTE .COMPLEX Qty: 180 3RF Hold Instructions: Resume on 01/24/24. Dose Instruction: TAKE 1 TABLET BY MOUTH TWICE DAILY NEEDED FOR PAIN FOR 90 DAYS Rx Instructions: TAKE 1 TABLET BY MOUTH TWICE DAILY NEEDED FOR PAIN FOR 90 DAYS (DME) Bone Growth Stimulator See Rx Instructions .Route .MEDSUPPLY Qty: 1 0RF Rx Instructions: As directed atorvastatin 10 mg tablet 10 mg PO DAILY Rx Instructions: TAKE 1 TABLET BY MOUTH DAILY tamsulosin 0.4 mg capsule 0.4 mg PO DAILY Rx Instructions: TAKE 1 CAPSULE BY MOUTH DAILY omeprazole 20 mg Capsule,Delayed Release(Dr/Ec) 20 mg PO DAILY Rx Instructions: 1/2 oral daily qqejvzcfqzaw-thdanhic-lechfz Tablet 1 tab PO DAILY Osteo Bi-Flex 1 cap PO DAILY aspirin 81 mg Tablet,Delayed Release (Dr/Ec) 81 mg PO DAILY Hold Instructions: Resume on 01/24/24. Discharge Orders: Discharge ED (Routine); Ordered 01/24/24 Ordered By: Vu Santiago Referrals: Taniya Farias MD [Primary Care Provider] - Discharge Diet: Usual diet Discharge Activity: Limit activity as instructed Patient Instructions: Opioid Safety, Pain Management Activity Restrictions/Additional Instructions: Pain medications as provided. Follow-up with Dr. Torres on Saturday as planned. Return with any new or concerning symptoms may have. Continue limiting activity as instructed by surgeon. Coding Level of Care Code ED Environmental Lawyer for Elvin Ko
== END 2024-01-24 18:25 | disposition home or self-care (01) ==
PROVIDERS: Emergency Provider Physician Assistant; PCP Family Medicine
DX: G89.18 Other acute postprocedural pain (principal); Z79.82 Long term (current) use of aspirin; I10 Essential (primary) hypertension
CPT/HCPCS: 99283

== ENCOUNTER → 2024-02-04 13:26 | Outpatient (BNVA) | payer MEDICARE, BC, SELFPAY | PROVIDERS: PCP Family Medicine; Visit Provider Orthopaedic Surgery | DX: Z98.1 Arthrodesis status (principal) | CPT/HCPCS: 99024 ==

== ENCOUNTER → 2024-03-03 14:27 | Outpatient (BNVA) | payer MEDICARE, BC, SELFPAY | PROVIDERS: PCP Family Medicine; Visit Provider Orthopaedic Surgery | DX: Z98.1 Arthrodesis status (principal) | CPT/HCPCS: 72040; 99024 ==

== ENCOUNTER → 2024-04-14 14:49 | Outpatient (BNVA) | payer MEDICARE, BC, SELFPAY | PROVIDERS: PCP Family Medicine; Visit Provider Orthopaedic Surgery | DX: Z98.1 Arthrodesis status (principal) | CPT/HCPCS: 72040; 99024 ==

== ENCOUNTER 2024-04-28 06:00 | Outpatient (RCR) | payer MEDICARE, BC, SELFPAY | END 2024-05-12 23:59 | disposition home or self-care (01) | LOC: MPT 06:00 | PROVIDERS: Visit Provider Orthopaedic Surgery | DX: M54.2 Cervicalgia (principal); G89.29 Other chronic pain | CPT/HCPCS: 97110; 97140; 97162; G0283 ==

== ENCOUNTER 2024-05-13 06:00 | Outpatient (RCR) | payer MEDICARE, BC, SELFPAY | END 2024-06-12 23:59 | disposition home or self-care (01) | LOC: MPT 06:00 | PROVIDERS: Visit Provider Orthopaedic Surgery | DX: M54.2 Cervicalgia (principal); G89.29 Other chronic pain | CPT/HCPCS: 97110; 97140; G0283 ==

== ENCOUNTER 2024-06-13 06:00 | Outpatient (RCR) | payer MEDICARE, BC, SELFPAY | END 2024-07-10 23:59 | disposition home or self-care (01) | LOC: MPT 06:00 | PROVIDERS: Visit Provider Orthopaedic Surgery | DX: M54.2 Cervicalgia (principal); G89.29 Other chronic pain | CPT/HCPCS: 97110; 97140; G0283 ==

== ENCOUNTER 2024-07-11 06:00 | Outpatient (RCR) | payer MEDICARE, BC, SELFPAY | END 2024-08-10 23:59 | disposition home or self-care (01) | LOC: MPT 06:00 | PROVIDERS: Visit Provider Orthopaedic Surgery | DX: M54.2 Cervicalgia (principal); G89.29 Other chronic pain | CPT/HCPCS: 97110; 97140; G0283 ==

== ENCOUNTER → 2024-07-21 10:26 | Outpatient (BNVA) | payer MEDICARE, BC, SELFPAY | PROVIDERS: Visit Provider Orthopaedic Surgery | DX: Z98.1 Arthrodesis status (principal) | CPT/HCPCS: 72040; 99214 ==

== ENCOUNTER 2024-08-11 06:00 | Outpatient (RCR) | payer MEDICARE, BC, SELFPAY | END 2024-09-09 23:59 | disposition home or self-care (01) | LOC: MPT 06:00 | PROVIDERS: PCP Family Medicine; Visit Provider Orthopaedic Surgery | DX: M54.2 Cervicalgia (principal); G89.29 Other chronic pain | CPT/HCPCS: 97110; G0283 ==

== ENCOUNTER 2024-09-10 05:00 | Outpatient (RCR) | payer MEDICARE, BC, SELFPAY | END 2024-10-10 23:59 | disposition home or self-care (01) | LOC: MPT 05:00 | PROVIDERS: PCP Family Medicine; Visit Provider Orthopaedic Surgery | DX: M54.2 Cervicalgia (principal); G89.29 Other chronic pain | CPT/HCPCS: 97110; 97140; G0283 ==

== ENCOUNTER → 2024-10-06 14:31 | Outpatient (BNVA) | payer MEDICARE, BC, SELFPAY | PROVIDERS: PCP Family Medicine; Referring Provider Orthopaedic Surgery; Visit Provider Psychiatry & Neurology Neurology | DX: Z98.1 Arthrodesis status (principal); M47.12 Other spondylosis with myelopathy, cervical region; M50.123 Cervical disc disorder at C6-C7 level with radiculopathy; R20.0 Anesthesia of skin; R20.2 Paresthesia of skin | CPT/HCPCS: 95885; 95913 ==

== ENCOUNTER → 2024-10-08 12:18 | Outpatient (BNVA) | payer MEDICARE, BC, SELFPAY | PROVIDERS: PCP Family Medicine; Visit Provider Family Medicine | DX: I10 Essential (primary) hypertension (principal); E78.00 Pure hypercholesterolemia, unspecified; N40.0 Benign prostatic hyperplasia without lower urinary tract symptoms; N40.1 Benign prostatic hyperplasia with lower urinary tract symptoms; N39.43 Post-void dribbling; R97.20 Elevated prostate specific antigen [PSA] | CPT/HCPCS: 80053; 80061; 83721; 85025; G0103 ==

== ENCOUNTER 2024-10-12 12:36 | Outpatient (CLI) | payer MEDICARE, BC, SELFPAY ==
--- NOTE | 2024-10-12 12:46 | XR_ITS ---
WS: [email or web address] XR shoulder LT min 2V* [id number] REASON FOR EXAM: increased pain in left shoulder FINDINGS: No fracture or focal bone lesion. Mild narrowing of the acromial clavicular joint space with mild subchondral sclerosis and osteophytosis. Moderate lateral downward slant of the acromial process. The glenohumeral joint space is not well demonstrated. There appears to be at least mild narrowing with moderate subchondral sclerosis of the glenoid and mild osteophytosis of the humeral head. There is mild sclerosis and cystic change in the greater biceps tuberosity. XR/XR shoulder LT min 2V* [id number] IMPRESSION: Mild osteoarthritis of the acromioclavicular joint. Osteoarthritis of the glenohumeral joint, at least mild. Mild rotator cuff tendon arthropathy.
== END 2024-10-12 12:37 | disposition home or self-care (01) ==
LOC: RAD 12:43
PROVIDERS: PCP Family Medicine; Visit Provider Family Medicine
DX: M19.012 Primary osteoarthritis, left shoulder (principal); R93.7 Abnormal findings on diagnostic imaging of other parts of musculoskeletal system; M25.712 Osteophyte, left shoulder
CPT/HCPCS: 73030

== ENCOUNTER → 2024-10-22 12:02 | Outpatient (BNVA) | payer MEDICARE, BC, SELFPAY | PROVIDERS: PCP Family Medicine; Visit Provider Physician Assistant | DX: G56.03 Carpal tunnel syndrome, bilateral upper limbs (principal); M75.42 Impingement syndrome of left shoulder; G56.22 Lesion of ulnar nerve, left upper limb; M19.012 Primary osteoarthritis, left shoulder | CPT/HCPCS: 20610; 73130; 99214; J3301; J9999 ==

== ENCOUNTER 2024-10-29 15:24 | Outpatient (CLI) | payer MEDICARE, BC, SELFPAY ==
--- NOTE | 2024-10-29 15:33 | XR_ITS ---
WS: [email or web address] Thoracic spine, 3 views, 10/29/2024 Clinical Data: back pain Comparison: None. Findings: No compression fractures are seen. The disc heights are normal. There is spurring of the anterior thoracic vertebral bodies. The paravertebral regions are normal. There is an anterior cervical disc fusion. XR/XR thoracic spine 3V* [id number] Impression: Osteoarthritis of the thoracic vertebral bodies.
--- NOTE | 2024-10-29 15:33 | XR_ITS ---
WS: [email or web address] Lumbar spine, 3 views, 10/29/2024 Clinical Data: back pain Comparison: None. Findings: No compression fractures or subluxation is seen. There is a posterior lumbosacral fusion L5-S1 with bilateral pedicle screws and connecting rods. There is an artificial disc at L5-S1. There is disc narrowing at L2-L3 and L3- L4. There is osteoarthritic spurring. There is a hemilaminectomy at L5.. The tr ansverse processes and SI joints are normal. There is calcification in the wall of the abdominal aorta but no aneurysm. XR/XR lumbar spine 2-3V* [id number] Impression: 1. L5-S1 posterior lumbosacral fusion. 2. Osteoarthritis of the lumbar vertebral bodies. 3. Degenerative disc narrowing at L2-L3 and L3-L4.
== END 2024-10-29 15:25 | disposition home or self-care (01) ==
LOC: RAD 15:27
PROVIDERS: PCP Family Medicine; Visit Provider Orthopaedic Surgery
DX: M47.816 Spondylosis without myelopathy or radiculopathy, lumbar region (principal); M47.814 Spondylosis without myelopathy or radiculopathy, thoracic region; M48.061 Spinal stenosis, lumbar region without neurogenic claudication; Z98.1 Arthrodesis status
CPT/HCPCS: 72072; 72100

== ENCOUNTER → 2024-11-24 14:06 | Outpatient (BNVA) | payer MEDICARE, BC, SELFPAY | PROVIDERS: PCP Family Medicine; Visit Provider Orthopaedic Surgery | DX: M54.9 Dorsalgia, unspecified (principal); M54.41 Lumbago with sciatica, right side; M54.42 Lumbago with sciatica, left side; G89.29 Other chronic pain | CPT/HCPCS: 72072; 72110; 99213 ==

== ENCOUNTER 2024-11-30 13:10 | Outpatient (CLI) | payer MEDICARE, BC, SELFPAY ==
--- NOTE | 2024-11-30 14:56 | MR_ITS ---
WS: [id number] MRI LUMBAR SPINE NONCONTRAST TECHNIQUE: Sagittal T1, T2 and STIR imaging. Axial T1 and T2 imaging. CLINICAL INFORMATION: Back Pain COMPARISON: MRI 2020 FINDINGS: Pedicle screw fixation L5-S1. Mild lumbar curve. No acute compression. Disc bulging worse at L2-3 and L3-4. L1-L2: Mild annular bulging. Slight narrowing of the RIGHT subarticular recess. Mild facet arthropathy. Mild bilateral foraminal narrowing. L2-L3: Progressed mild central canal stenosis. RIGHT paracentral protrusion impinges the RIGHT subarticular recess and traversing RIGHT L3 nerve root. This is progressed compared to previous. Moderate facet arthropathy. Mild bilateral foraminal narrowing. L3-L4: Central disc protrusion with moderate central canal stenosis is new compared to previous. Impingement traversing L4 nerve roots. Moderate facet arthropathy. Moderate LEFT and mild RIGHT foraminal narrowing. L4-L5: Mild disc bulge with a narrowing of the RIGHT greater than LEFT subarticular recess. Moderate facet arthropathy. Foramen are patent. L5-S1: Laminectomy defects. Moderate facet arthropathy. RIGHT foraminal protrusion with moderate RIGHT foraminal narrowing. Slight contact of the RIGHT S1 nerve root. LEFT foramen is patent. Spinal canal is patent. Visualized pelvic bony structures: Normal. Paravertebral soft tissues: Normal. Small RIGHT renal cyst. MR/MR lumbar spine wo con* [id number] IMPRESSION: 1. Moderate central canal stenosis L3-4 is new compared to previous with impin gement on the traversing L4 nerve roots bilaterally. Moderate LEFT foraminal na rrowing at this level impinges the exiting LEFT L3 nerve root. 2. Progressed mild central canal stenosis L2-3 with a RIGHT paracentral protru marjorie and impingement of traversing RIGHT L3 nerve root.
== END 2024-11-30 13:11 | disposition home or self-care (01) ==
LOC: RAD 13:11
PROVIDERS: PCP Family Medicine; Visit Provider Orthopaedic Surgery
DX: M48.061 Spinal stenosis, lumbar region without neurogenic claudication (principal); M99.63 Osseous and subluxation stenosis of intervertebral foramina of lumbar region; M51.16 Intervertebral disc disorders with radiculopathy, lumbar region; M96.1 Postlaminectomy syndrome, not elsewhere classified; M51.27 Other intervertebral disc displacement, lumbosacral region
CPT/HCPCS: 72148

== ENCOUNTER → 2024-12-03 13:17 | Outpatient (BNVA) | payer MEDICARE, BC, SELFPAY | PROVIDERS: PCP Family Medicine; Visit Provider Orthopaedic Surgery | DX: M48.062 Spinal stenosis, lumbar region with neurogenic claudication (principal) | CPT/HCPCS: 99214 ==

== ENCOUNTER → 2024-12-22 08:20 | Outpatient (BNVA) | payer MEDICARE, BC, SELFPAY | PROVIDERS: PCP Family Medicine; Visit Provider Anesthesiology Pain Medicine | DX: M48.062 Spinal stenosis, lumbar region with neurogenic claudication (principal) | CPT/HCPCS: 99204 ==

== ENCOUNTER 2024-12-24 06:42 | Day surgery (SDC) | payer MEDICARE, BC, SELFPAY ==
[2024-12-24] VITALS (7 sets, daily range): BP systolic 127–151; BP diastolic 68–95; PULSE 68–81; RESP 14–18; TEMP 36.1–36.4; O2SAT 95–100; BMI 30.8
--- NOTE | 2024-12-24 07:01 | ANES.PREANE2 ---
Pre-Anesthetic Assessment Height/Weight: Height 6 ft 2 in Preop Diagnosis: Cubital tunnel syndrome Operation Date: 12/24/24 08:35 Proposed Procedures p LEFT Carpal Tunnel Release(Left) - Johnson [place], DO s LEFT Cubital Tunnel Release(Left) - Johnson Aryan, DO s POSSIBLE Left Ulnar Nerve Transposition(Left) - Johnson [place], DO Was Beta Mila taken within 24 hours: N/A Was Clonidine taken within 24 hours: N/A Social No alcohol and No tobacco Exam alert, oriented x 3, clear to auscultation bilaterally and regular rate & rhythm Airway Submandibular: within normal limits Cervical ROM: within normal limits Mallampati: Class III Dentition: full Anesthetic Plan ASA status: 3 Anesthesia: Choice and Regional (specify below) Other: No prior issues with anesthesia NPO since yesterday evening History of hypertension on lisinopril?HCTZ GERD controlled with omeprazole S/p cervical fusion Labs reviewed from 10/08/2024 and acceptable for procedure Prior EKG showing sinus rhythm with occasional PACs Plan for peripheral nerve block Medications/Allergies Home Medications ?Medication ?Instructions ?Recorded ?Confirmed ?Last Taken ?Type Osteo Bi-Flex 1 cap PO DAILY 10/13/21 12/23/24 12/23/24 History aspirin 81 mg tablet,delayed 81 mg PO DAILY 10/13/21 12/23/24 12/22/24 History release Held on 01/23/24. Instructions: Resume on 01/24/24. ivstsxwhzijz-ybbywidk-alzvbi tablet 1 tab PO DAILY 10/13/21 12/23/24 12/23/24 History omeprazole 20 mg capsule,delayed 20 mg PO DAILY 10/13/21 12/23/24 12/23/24 History release lisinopril 20 See Rx Instructions .Route 08/10/24 12/23/24 12/23/24 Rx mg-hydrochlorothiazide 25 mg tablet .COMPLEX #90 tabs tamsulosin 0.4 mg capsule See Rx Instructions .Route 08/25/24 12/23/24 12/23/24 Rx .COMPLEX #90 caps diclofenac sodium 75 mg See Rx Instructions .Route 10/08/24 12/23/24 12/23/24 Rx tablet,delayed release .COMPLEX #180 tabs hydrocodone 7.5 mg-acetaminophen 1 tab PO Q4H PRN pain 7 days #40 12/02/24 12/23/24 12/21/24 Rx 325 mg tablet tabs atorvastatin 10 mg tablet See Rx Instructions .Route 12/15/24 12/23/24 12/16/24 Rx .COMPLEX #90 tabs Allergies Allergy/AdvReac Type Severity Reaction Status Date / Time No Known Allergies Allergy Verified 12/23/24 12:11 COUNT INCLUDES THE [facility] Anesthesia Medical History Lumbar disc disease Spinal stenosis, cervical region Prostatic hyperplasia Hypertension Hypercholesteremia Surgical History Previous back surgery Social History Smoking and tobacco/nicotine status: never used tobacco/nicotine Alcohol intake: former Substance/Drug Use: never
[2024-12-24] MEDS: acetaminophen 1,000 MG/100 ML PIGGYBACK 400 MG IV (07:12)
--- NOTE | 2024-12-24 07:37 | ANES.PROC ---
Anesthesia Procedures Procedure/Date: 12/24/24 Nerve Block ^: Nerve Block 1: Main Anesthesia: other (100 mcg fentanyl) Time Out Performed: Yes Consent: requested by attending/covering physician and from patient Laterality: Left Nerve block location: supraclavicular Anesthesia monitors applied: pulse oximetry, EKG, BP cuff and oxygen Nerve block position: supine Anesthetic Used: ropivicaine 0.5% Amount of anesthesia used (mL): 30 Ultrasound used to: recognize landmarks Nerve Stimulator Used?: Yes Interscalene/Femoral BLK: other needle (pjunk 4inch) Injection: neg aspiration of heme Patient Tolerated Procedure: well Complications: none Additional Comments: Decadron 4 mg added to block
--- NOTE | 2024-12-24 08:36 | W.PM.OPSFHP ---
Same Day Surgery H&P Indication for Procedure/HPI DATE OF PROCEDURE: December 24, 2024 CHIEF COMPLAINT/INDICATIONFOR SURGICAL PROCEDURE: Left carpal tunnel syndrome, left cubital tunnel syndrome PREOP DIAGNOSIS: left Cubital tunnel syndrome left carpal tunnel syndrome, PLANNED PROCEDURE: Operation Date: 12/24/24 08:35 Proposed Procedures p LEFT Carpal Tunnel Release(Left) - Johnson [place], DO s LEFT Cubital Tunnel Release(Left) - Johnson [place], DO s POSSIBLE Left Ulnar Nerve Transposition(Left) - Johnson Aryan, DO Medications/Allergies* Home Medications ?Medication ?Instructions ?Recorded ?Confirmed ?Type Osteo Bi-Flex 1 cap PO DAILY 10/13/21 12/23/24 History aspirin 81 mg tablet,delayed 81 mg PO DAILY 10/13/21 12/23/24 History release Held on 01/23/24. Instructions: Resume on 01/24/24. kygdfpiutbxc-lkbpzpcr-rwjuek tablet 1 tab PO DAILY 10/13/21 12/23/24 History omeprazole 20 mg capsule,delayed 20 mg PO DAILY 10/13/21 12/23/24 History release Allergies/Adverse Reactions Allergy/AdvReac Type Severity Reaction Status Date / Time No Known Allergies Allergy Verified 12/23/24 12:11 Current Medications: Generic Name Dose Route Start Last Admin Trade Name Freq PRN Reason Stop Dose Admin Sodium Chloride 1,000 mls @ 30 mls/hr 12/24/24 07:00 12/24/24 07:13 Sodium Chloride 0.9% IV 12/25/24 06:59 30 mls/hr .Q24H [place] Administration Pertinent History/Comorbid Conditions* Medical History (Updated 12/03/24 @ 14:50 by Cecil Torres DO) Lumbar disc disease Spinal stenosis, cervical region Prostatic hyperplasia Hypertension Hypercholesteremia Surgical History (Updated 10/22/24 @ 21:32 by Taniya Farias MD) Previous back surgery Social History Smoking and tobacco/nicotine status: never used tobacco/nicotine Alcohol intake: former Substance/Drug Use: never Pertinent Exam Findings alert, oriented x 3, operative site marked and procedure specific exam findings Patient obtained preoperative block Please refer to detail orthopedic examination on 10/22/2024 listed below: Left Hand exam-positive Tinel's and positive Phalen's test. mild thenar atrophy and thenar muscle weakness. Full range of motion in fingers and wrist and fingers are warm and well-perfused with normal cap refill under 2 seconds. Radial pulse 2+, intrinsic muscle weakness noted. Left Elbow exam-positive Tinel's test Recommendations Risks and benefits of procedure reviewed and Patient/family agree to proceed Surgery/Procedure today Other Plans: Plan to proceed to the OR today for left carpal tunnel release and left cubital tunnel release with possible nerve transposition. Patient understands ins outs procedure the risks benefits complication alternatives of surgical and nonsurgical treatment options understanding risk of surgery patient like to proceed with surgical intervention today all questions answered at this time. Once again we reviewed patient's nerve conduction study as findings are consistent with left carpal tunnel and left cubital tunnel syndrome they do comment on possible ulnar wrist but on previous examination did not have any significant provocative Guyon canal signs this point in time I talked about this with in detail at this point in time RAID proceed with surgical intervention for left carpal tunnel release and left cubital tunnel release Possible ulnar nerve transposition. All questions answered at this time. Proceed to the OR today. Coding Level of Care Code Acute Code for Jrg Stefani
[2024-12-24] MEDS: ceFAZolin 2,000 MG in sodium chloride 0.9% (plus) 50 ML 100 MG IV (08:56)
--- NOTE | 2024-12-24 09:49 | PM.OP ---
Operative Report Date of procedure: December 24, 2024 Surgeon: Johnson Baeza DO Bridge Teacher: Ryan Baeza PA-C: PA was necessary for assistance in this case with hand positioning to execute the procedure, retraction and protection of neurovascular structures as well as to assist with wound closure and dressing application. Procedure: Preoperative diagnosis: Left carpal tunnel syndrome Left cubital tunnel syndrome Postop Diagnosis: Same Procedure done: Left carpal tunnel release Left?cubital tunnel tunnel release (ulnar nerve decompression at elbow) Surgeon: Johnson Baeza DO Estimated blood loss: 10 mL Tourniquet? 17 minutes IV fluids: 400 mL Complications: None Findings: See operative report narrative Condition: stable Disposition: same day Brief History: Patient's been seen and worked up in the outpatient setting and findings consistent with preoperative diagnosis.? Patient has Left carpal tunnel syndrome as well as Left?cubital tunnel syndrome which has been worked up in the outpatient setting has physical exam findings consistent with this as well as confirmatory nerve conduction/EMG nerve conduction study consistent with diagnosis.? Patient's failed conservative treatment.? As result through shared decision making agreed to proceed with? Left carpal tunnel and Left?cubital tunnel release we talked about treatment options as far as nonoperative and operative intervention.? Understands risk benefits complication alternatives surgical nonsurgical treatment options.? Understanding his risks he agrees to proceed with surgical intervention. Understanding these risks he agrees to proceed with surgery.? Consent obtained in office. Procedure: Patient seen evaluate in the preoperative holding area.? Consent was reviewed and signed with patient.? Correct extremity marked.? Patient seen evaluated by anesthesia department once cleared for surgery was then taken back to the operative suite placed in supine position all bony prominences well-padded patient properly secured to bed.? Left upper extremity placed onto armboard.? Nonsterile tourniquet applied Left upper arm.? Patient then underwent anesthesia per the anesthesia department.? Patient's Left upper extremity was then prepped and draped in standard orthopedic fashion.? Final timeout performed.? Patient received appropriate preoperative antibiotics. Esmarch was used exsanguinate the Left upper extremity.? Tourniquet was insufflated to 250 mmHg. I started with the carpal tunnel release first.? I made a standard open carpal tunnel release starting with the distal most extent in the palm at the Madsen's cardinal line and the incision line was made in line with the fourth ray and ended just distal to the wrist crease.? Sharp scalpel incision was made through skin and subcutaneous tissue I then utilizing self retainer then began to dissect with dissection scissors split longitudinally the palmar fascia.? Next I then utilizing my assistant professor of english Isra retractors subsequently utilizing scalpel feathered through the palmaris brevis as well as through the transverse carpal ligament distally.? Once I encountered the floor of the transverse carpal ligament and entered into the carpal tunnel I then switched to dissection scissors.? Carefully released the distal extent of the transverse carpal ligament to the palmar fat.? Care was to protect the recurrent branch and not injured this during this part of the case.? Next I then placed a Rosebud underneath the transverse carpal ligament proximally to protect the nerve in the carpal tunnel contents.? And then I subsequently under loupe magnification utilize my dissection scissors to release the transverse carpal ligament into the antebrachial fascia under direct visualization with care to keep my scissors with a curved ulnarly away from the palmar cutaneous branch.? The transverse carpal was then completely decompressed proximally and a Rosebud was then placed both distally and proximally throughout the carpal tunnel and had complete decompression of the nerve.? The nerve did appear to have hourglass shape as it went through the carpal tunnel.? With significant irritation noted around the nerve.? No masses were noted within the contents of the carpal tunnel.? This completed the carpal tunnel release and then I subsequently irrigated the wound bed and placed a wet Ray-Luiz into the incision for later closure. Next marked out the landmarks of the Left elbow of the medial epicondyle and olecranon and made a curvilinear incision following the course of the ulnar nerve at the medial aspect of the elbow.? Sharp scalpel incision was made through skin and subcutaneous tissue.? Next I switched to Littler dissection scissors and spread in plane of the medial antebrachial cutaneous nerve branching which was protected throughout this part of the dissection.? Then I directly came down over the fascia and identified the 2 heads of the FCU fascia and split this Left in the middle and subsequently identified my ulnar nerve distally.? This was then completely released distally under direct visualization and loupe magnification.? Once the nerve was then identified I then subsequently tracked this proximally and released this through Razo's ligament as well as complete decompression of the nerve proximally all the way past the intermuscular septum.? The nerve was completely released and decompressed both proximally and distally.? Ulnar nerve neurolysis performed and completed both proximally and distally with dissection scissors.? I then took the elbow through range of motion and there was no instability or subluxating of the ulnar nerve.? This completed?cubital tunnel release.? ?Next the wound bed was thoroughly irrigated.? Tourniquet was deflated.? Hemostasis was satisfactory at the?cubital tunnel release surgery site. I then inspected the carpal tunnel incision and this was found to have satisfactory hemostasis and all this was maintained through bipolar electrocautery.? At this point time I sequentially closed?cubital tunnel site with 3-0 Vicryl suture in a running horizontal mattress nylon stitch.? ? The carpal tunnel release surgery was then closed in standard interrupted mattress fashion.? Dressing was Xeroform 4 x 4's ABD Curlex soft roll and an Harpreet wrap has a bulky soft dressing. Patient was then awakened from anesthesia and taken to PACU in stable condition. Disposition: Patient taken to PACU in stable condition recovering well.? Patient will receive appropriate discharge instructions as well as pain medication postoperatively.? We will follow-up with ortho in the office in 2 weeks.? Patient understands agrees with current plan.? All questions answered.? He understands if any questions or concerns and contact the office for follow-up appointment..
--- NOTE | 2024-12-24 09:58 | W.PM.BPON ---
Date of Procedure: [December 24, 2024] Surgeon: [Dr. Aryan DO] [employer]um[employer]pers(s): [Ryan Baeza PA-C] Procedure(s) performed: [Left carpal tunnel release and left cubital tunnel release] Findings of the procedure(s): [Left carpal tunnel syndrome and left cubital tunnel syndrome. No subluxation of the ulnar nerve with range of motion so no ulnar nerve transposition performed. Procedure went well and is planned] Estimated blood loss: [10 mL] Specimen(s) removed: [N/A] Post-operative diagnosis: [Left carpal tunnel syndrome left cubital tunnel syndrome]
--- NOTE | 2024-12-24 11:11 | ANE.PACU2 ---
Inpatient post-anesthesia follow up: Airway intact: Yes Vital signs: Temperature 97 F Pulse Rate 76 Respiratory Rate 18 Blood Pressure 145/68 Pulse Oximetry 95 Oxygen Delivery Me thod Room Air Oxygen Flow Rate 6 Fraction of Inspir ed Oxygen Hydration adequate: Yes Nausea and vomiting: No Pain level: 1 Mental status: Baseline
== END 2024-12-24 11:12 | disposition home or self-care (01) ==
PROVIDERS: PCP Family Medicine; Visit Provider Student in an Organized Health Care Education/Training Program
PROC: (CPT 64721; principal; 2024-12-24 08:35)
PROC: (CPT 64718; 2024-12-24 08:35)
DX: G56.02 Carpal tunnel syndrome, left upper limb (principal); G56.22 Lesion of ulnar nerve, left upper limb; I10 Essential (primary) hypertension; K21.9 Gastro-esophageal reflux disease without esophagitis; Z98.1 Arthrodesis status; Z79.82 Long term (current) use of aspirin
CPT/HCPCS: 64718; 64721; A7015; J0131; J0690; J1885; J2704; J3010; J7030; J9999

== ENCOUNTER → 2025-01-06 10:26 | Outpatient (BNVA) | payer MEDICARE, BC, SELFPAY | PROVIDERS: PCP Family Medicine; Visit Provider Physician Assistant | DX: Z98.890 Other specified postprocedural states (principal) | CPT/HCPCS: 99024 ==

== ENCOUNTER → 2025-01-19 12:50 | Outpatient (BNVA) | payer MEDICARE, BC, SELFPAY | PROVIDERS: PCP Family Medicine; Visit Provider Anesthesiology Pain Medicine | DX: M54.16 Radiculopathy, lumbar region (principal) | CPT/HCPCS: 62323; J1010; J9999 ==

== ENCOUNTER → 2025-02-02 08:50 | Outpatient (BNVA) | payer MEDICARE, BC, SELFPAY | PROVIDERS: PCP Family Medicine; Visit Provider Anesthesiology Pain Medicine | DX: M48.062 Spinal stenosis, lumbar region with neurogenic claudication (principal) | CPT/HCPCS: 99214 ==

== ENCOUNTER → 2025-02-17 10:50 | Outpatient (BNVA) | payer MEDICARE, BC, SELFPAY | PROVIDERS: PCP Family Medicine; Visit Provider Physician Assistant | DX: Z98.890 Other specified postprocedural states (principal) | CPT/HCPCS: 99024 ==

== ENCOUNTER → 2025-03-11 12:42 | Outpatient (BNVA) | payer MEDICARE, BC, SELFPAY | PROVIDERS: PCP Family Medicine; Visit Provider Orthopaedic Surgery | DX: M48.062 Spinal stenosis, lumbar region with neurogenic claudication (principal) | CPT/HCPCS: 99213 ==

== ENCOUNTER → 2025-04-26 09:56 | Outpatient (BNVA) | payer MEDICARE, BC, SELFPAY | PROVIDERS: PCP Family Medicine; Visit Provider Anesthesiology Pain Medicine | DX: M48.062 Spinal stenosis, lumbar region with neurogenic claudication (principal) | CPT/HCPCS: 99214 ==